=== PATIENT | female | born 1955 | race Caucasian/White ===

== ENCOUNTER 2016-11-16 14:55 | Inpatient (IN) | payer SELFPAY ==
--- NOTE | 2016-11-16 15:45 | ED.PDOC ---
History of Present Illness - General Chief Complaint: Abdominal Pain Stated Complaint: abdominal pain,n/v Time Seen by Provider: 11/16/16 15:45 Information Source: patient, Vital Signs reviewed Exam Limitations: no limitations - History of Present Illness Initial Comments: Maren Chacko 61 y/o female stated that she had been having sharp intermittent lower abdominal pains since yesterday had one episode of vomiting today ,no painful urination no diarrhea but with loose stools x 3 today.Just had soup today since no appetite. Abdominal Pain Onset Location: suprapubic Pain Radiation: no radiation Timing/Duration: 24 hours, intermittent Improving Factors: nothing Worsening Factors: nothing Associated Symptoms: nausea/vomiting - x 1 Review of Systems - Review of Systems Constitutional: States: no symptoms reported EENTM: States: no symptoms reported Respiratory: States: no symptoms reported Cardiology: States: no symptoms reported Gastrointestinal/Abdominal: States: see HPI Genitourinary: States: no symptoms reported Musculoskeletal: States: no symptoms reported Past Medical History (General) - Patient Medical History Hx Congestive Heart Failure: No Hx Diabetes: No Surgical History: other - removal of breast implant - Vaccination History Hx Influenza Vaccination: Yes Hx Pneumococcal Vaccination: No - Social History Hx Tobacco Use: No Family Medical History - Family History Mother Family History: Unknown Living Status: Unknown Hx Family Hypertension: Yes - several family members Hx Family Diabetes: Yes - mom Physical Exam - Physical Exam General Appearance: Alert, No apparent distress Eyes, Ears, Nose, Throat Exam: PERRL/EOMI, pharynx normal Neck: non-tender, supple Respiratory: chest non-tender, lungs clear Cardiovascular/Chest: normal peripheral pulses, regular rate, rhythm, no murmur Peripheral Pulses: No deficit Gastrointestinal/Abdominal: soft, rebound - lower abdomen, tenderness - suprapubic Back Exam: no vertebral tenderness Extremity: no pedal edema, no calf tenderness Lymphatic: no adenopathy Progress - Progress Progress: 11/16/16 18:43 Vital Signs - 8 hr 11/16/16 11/16/16 15:27 17:00 Temperature 97.9 F Pulse Rate [ 86 80 Left Brachial] Respiratory 20 16 Rate Blood Pressure 128/80 117/76 [Left Arm] O2 Sat by Pulse 95 94 L Oximetry Laboratory Tests 11/16/16 11/16/16 11/16/16 16:01 16:01 16:05 WBC 10.9 H RBC 4.46 Hgb 14.0 Hct 41.2 MCV 92.2 MCH 31.3 H MCHC 34.0 RDW 13.9 Plt Count 197 MPV 8.5 Absolute Neuts (auto) 8.50 H Absolute Lymphs (auto) 1.40 Absolute Monos (auto) 0.90 H Absolute Eos (auto) 0.00 Absolute Basos (auto) 0.00 Neutrophils % 77.8 Lymphocytes % 13.1 L Monocytes % 8.5 Eosinophils % 0.2 L Basophils % 0.4 Sodium 133 L Potassium 4.0 Chloride 100 L Carbon Dioxide 24 Anion Gap 13.0 BUN 12 Creatinine 0.65 BUN/Creatinine Ratio 18.5 Random Glucose 107 H Serum Osmolality 266.6 L Calcium 9.2 Total Bilirubin 0.7 AST 16 ALT 17 Alkaline Phosphatase 52 Serum Total Protein 6.9 Albumin 4.1 Globulin 2.8 Albumin/Globulin Ratio 1.5 Lipase 19 L Urine Color Yellow Urine Appearance Sl cloudy Urine pH 7.0 Ur Specific [place] 1.025 Urine Protein Negative Urine Glucose (UA) Negative Urine Ketones >=160 Urine Blood Moderate H Urine Nitrite Negative Urine Bilirubin Negative Urine Urobilinogen 0.2 Ur Leukocyte Esterase Large H Urine RBC 10-20 H Urine WBC 20-30 H Ur Epithelial Cells 3-5 Urine Bacteria 2+ H - EKG/XRAY/CT CT Ordered: Yes - abd/p-acute appendicitis with fat stranding Departure - Departure Clinical Impression: Abdominal pain Qualifiers: Abdominal location: lower abdomen, unspecified Qualified Code(s): R10.30 - Lower abdominal pain, unspecified Appendicitis, acute Qualifiers: Acute appendicitis type: other Qualified Code(s): K35.89 - Other acute appendicitis Time of Disposition: 18:44 Disposition: Admit Patient Condition: Good Home Medications: Ambulatory Orders NK [NK] 11/16/16 Decision To Admit - Decistion To Admit Decision to Admit Reason: Admit from ER Decision to Admit Date: 11/16/16 Decision to Admit Time: 19:00 - D/ W Dr. MCGARRY-surgeon
--- NOTE | 2016-11-16 18:28 | CT ---
EXAM DESCRIPTION: Abdoment/Pelvis w/o Contrast CLINICAL HISTORY: 61 years Female, pain COMPARISON: None. TECHNIQUE: Contiguous axial CT images of the abdomen and pelvis were acquired without administration of intravenous contrast. Coronal and sagittal reformatted images are provided. This exam was performed according to our departmental dose-optimization program which includes use of Automated Exposure Control, adjustment of the mA and/or kV according to patient size and/or use of iterative reconstruction technique. FINDINGS: Chest base: Unremarkable Liver: At least two hypoattenuating lesions are seen within the liver, the larger lesion being a simple hepatic cyst.. Gallbladder: Unremarkable. Spleen: Unremarkable. Adrenals: Unremarkable. Pancreas: Unremarkable. Right Kidney: No renal stones or hydronephrosis. Left Kidney: No renal stones or hydronephrosis. Aorta and branch vessels: Unremarkable. Lymph nodes: No lymphadenopathy. Bowels: Enlarged appendix measuring 11 mm with adjacent fat stranding and mildly thickened zayas. Scattered colonic diverticula. Pelvic organs: Unremarkable. Bladder: Unremarkable. Bones and soft tissues: No acute osseous or soft tissue abnormalities. IMPRESSION: Findings of uncomplicated acute appendicitis. Scattered colonic diverticula. Electronically signed by: Jose West MD 11/16/2016 6:27 PM CDT
[2016-11-16] MEDS ORDERED: SODIUM CHLORIDE 0.9% 1000ML 1,000 ML IVS ONE (18:37)
[2016-11-16] MEDS ORDERED: levoFLOXacin 500MG IV 500 MG in PREMIX BAG 1 BAG IVPB ONE (18:39)
[2016-11-16] MEDS ORDERED: levoFLOXacin 500MG IV 100 ML IVPB ONE (18:50)
--- NOTE | 2016-11-16 20:35 | HP ---
SUPERVISING PHYSICIAN: Jose Alcaraz MD CHIEF COMPLAINT: Abdominal pain. HISTORY OF PRESENT ILLNESS: This is a 61-year-old female who had been having sharp intermittent lower abdominal pain since yesterday. She had several episodes of vomiting. She has not had an appetite over the last few days. The abdominal pain progressively worsened, so she came to the Emergency Room today. In the Emergency Room, she had some suprapubic and umbilical abdominal pain and her CT of the abdomen and pelvis pain in the right showed findings of uncomplicated acute appendicitis and scattered colonic diverticula. Her laboratory studies showed a WBC of 10.9, hemoglobin 14, hematocrit 41.2. Sodium was slightly low at 133 with potassium 4, chloride 100, carbon dioxide 24 , BUN 12, creatinine 0.65, random glucose 107, serum osmolality 266.6, lipase 19. Urinalysis showed moderate urine blood, large urine leukocyte esterase, 10 to 20 urine RBCs, 20 to 30 urine WBCs, and 2+ urine bacteria. Dr. Conway was consulted by the Emergency Room physician and she was also given some Levaquin and Zofran in the Emergency Room. After speaking with Dr. Conway, we are going to admit the patient for acute appendicitis. PAST MEDICAL HISTORY: None. PAST SURGICAL HISTORY: 1. Removal of her breast implants. HOME MEDICATIONS: Negative. ALLERGIES: CODEINE. SOCIAL HISTORY: She is . She lives in [place]. She denies any smoking, ETOH, or illicit drug use. REVIEW OF SYSTEMS: GENERAL: Negative for fever, fatigue or weight changes. HEENT: Negative for sinus symptoms, ear pain, vision changes or sore throat. RESPIRATORY: Negative for wheezing, coughing or shortness of breath. CARDIAC: Negative for chest pain, palpitations or tachycardia. GASTROINTESTINAL: As per history of present illness. GENITOURINARY: Negative for hematuria, dysuria or polyuria. MUSCULOSKELETAL: Negative for arthralgias, myalgias or back pain. NEUROLOGIC: Negative for headache, dizziness or seizures. PHYSICAL EXAMINATION: VITAL SIGNS: Temperature 99.7. Heart rate 97. Blood pressure 119/69. Respiratory rate 20. O2 saturation 94% on room air. GENERAL: This is a 61-year-old female patient who is lying in her hospital bed. She is in no acute distress. HEENT: Normocephalic, atraumatic. Pupils are equal and reactive. Oropharynx is clear. NECK: Supple without mass. RESPIRATORY: Clear to auscultation bilaterally. CHEST: There is equal rise and fall of the chest with inspiration and expiration. CARDIOVASCULAR: Regular rate and rhythm. ABDOMEN: Soft, nondistended. She has no rebound tenderness, but is diffusely tender in the umbilical to the suprapubic area. Bowel sounds are positive. EXTREMITIES: No cyanosis, clubbing or edema. NEUROLOGIC: Awake, alert and oriented times three. LABORATORY: Labs and films are as per the history of present illness. ASSESSMENT: 1. Acute appendicitis with a mildly elevated white blood cell count. 2. Urinary tract infection. 3. Suprapubic abdominal pain. PLAN: We will admit the patient to the hospital. I have consulted Dr. Conway. She has received a dose of Levaquin and we will continue the Levaquin as well as Flagyl. We will also begin some IV fluids and NPO after midnight. I have given her some Dilaudid for pain and some Ativan for sleep tonight. I have also given her some Zofran. Protonix has been ordered for ulcer prophylaxis, SCDs for DVT prophylaxis. I have repeated some morning lab. Dr. Conway will see her in the morning. At that time, we will discuss surgical options if needed. Otherwise, we will continue to monitor the patient closely and follow as needed. Dr. Alcaraz is the collaborating physician and available for consultation. #[id number] [facility]
[2016-11-16] MEDS ORDERED: ONDANSETRON INJ 4 MG/2 ML VIAL IV ONE (20:38)
[2016-11-16] MEDS ORDERED: ONDANSETRON INJ 4 MG/2 ML VIAL ONE (20:38)
[2016-11-16] MEDS ORDERED: ONDANSETRON INJ 4 MG/2 ML VIAL IV PRN (21:24)
[2016-11-16] MEDS ORDERED: HYDROmorphone HCL INJ 2 MG/ML VIAL IV PRN (21:27)
[2016-11-16] MEDS ORDERED: IV SET AND CAP CHANGE INJ INJ SCH (21:30)
[2016-11-16] MEDS ORDERED: metroNIDAZOLE IV PREMIX 500MG 100 ML IVPB ONE (21:49)
[2016-11-16] MEDS: DEX 5% W/NACL 0.9% 1000ML 1,000 ML IVS PRN (21:57)
[2016-11-16] MEDS: PANTOPRAZOLE SODIUM IV 40 MG VIAL IV SCH (21:59)
[2016-11-16] MEDS: metroNIDAZOLE IV PREMIX 500MG 500 MG in PREMIX BAG 1 BAG IVPB SCH (22:03)
[2016-11-17] MEDS ORDERED: metroNIDAZOLE IV PREMIX 500MG 100 ML IVPB ONE ×3 (06:29→20:28)
[2016-11-17] MEDS: metroNIDAZOLE IV PREMIX 500MG 500 MG in PREMIX BAG 1 BAG IVPB SCH ×3 (06:30→22:09)
[2016-11-17] MEDS: DEX 5% W/NACL 0.9% 1000ML 1,000 ML IVS PRN ×2 (08:29→15:57)
--- NOTE | 2016-11-17 09:05 | RAD ---
Study: Single Frontal View of the Chest. Indication:preop/abdominal pain/tachycardia Comparison: October 07, 2011. IMPRESSION: Lung apices not included in their entirety within the field of view on the frontal image. Heart size normal. Lungs clear. No acute osseous abnormality. Electronically signed by: Carlton Dutta MD 11/17/2016 9:04 AM CDT
--- NOTE | 2016-11-17 09:55 | CONS ---
DATE OF CONSULTATION: 11/17/16 HISTORY OF PRESENT ILLNESS: The patient is a 61-year-old female who developed acute abdominal pain intermittently in the lower abdomen on Thursday. She has had evidence for episodes of vomiting prior to presenting to the Emergency Room and had no appetite. The abdominal pain worsened. She presented to the Emergency Room where she was found to have a mildly elevated white blood cell count of 10.[address] scan revealed acute, uncomplicated appendicitis and diverticulosis. She denied previous episodes of like illnesses. She denied change in her bowel habits, but does have a chronic problem with constipation, especially since she has been on a very low carb diet. She specifically denied blood per rectum, melanotic stools and no hematemesis. PAST MEDICAL HISTORY: Noncontributory. PAST SURGICAL HISTORY: 1. Breast implants and removal. CURRENT MEDICATIONS: She takes no medications. ALLERGIES: CODEINE. SOCIAL HISTORY: The patient is and lives here in [place]. She runs a restaurant. She denies significant smoking history. She drinks moderately to minimally and has no history of drug use. REVIEW OF SYSTEMS: Negative specifically for change in weight, fever, no upper respiratory symptoms, no shortness of breath or chest pain. There is no history of hematuria or dysuria. PHYSICAL EXAMINATION: VITAL SIGNS: The patient is currently afebrile, normotensive. Pulse rate in the 90s. Respiratory rate 18. HEENT: Sclerae nonicteric. Mucous membranes moist. NECK: Without adenopathy. CHEST: Equal breath sounds bilaterally. HEART: Regular rate and rhythm. ABDOMEN: Soft. There is mild tenderness in the right lower quadrant without mass, without guarding. Bowel sounds are positive. PELVIC/RECTAL: Deferred. EXTREMITIES: Without cyanosis, clubbing or edema. LABORATORY: This morning, white blood cell count 10.7, 79% neutrophils, hemoglobin 13.4 which is down from 14, platelet count 189,000. Potassium 3.8, creatinine 0.62. Liver functions are all within normal limits. C-reactive protein 10.5. Urine revealed specific gravity of 1.025 on admission, 10 to 20 red cells, 20 to 30 white cells, 2+ bacteria. Urine culture is pending. ASSESSMENT: 1. Acute appendicitis. 2. Diverticulosis. PLAN: She was started on IV Flagyl and Levaquin last night. Her white count is essentially the same considering however she did have a drop in her hemoglobin, so she is somewhat dehydrated, so her white count may have come down slightly from that. Her shift shows slightly higher segmented neutrophils , but not significantly. She has possibly a urinary tract infection. I have discussed at length with the patient either antibiotic therapy for the appendicitis versus appendectomy and laparoscopic appendectomy. The and are currently discussing it. Currently, we will continue the IV Flagyl and Levaquin. If she continues to improve later this morning, we will consider feeding her a clear liquid lunch and if she tolerates that and stays afebrile, etc., would consider discharge this evening on oral antibiotics for at least 7 days. [facility][id number] [facility]
--- NOTE | 2016-11-17 11:43 | PN ---
SUPERVISING PHYSICIAN: Eugene Darnell MD DATE: 11/17/16 SUBJECTIVE: The patient is sitting up in her bed. She says she feel some better and actually feels like she could eat, but due to the significant pain yesterday and after discussing her condition with Dr. Conway, she has decided to go ahead and have the appendectomy. She has no complaints of nausea, vomiting, diarrhea, or constipation. She does still have some mild suprapubic to umbilical tenderness. OBJECTIVE: VITAL SIGNS: T-max in 24 hours is 99.3. Pulse 92. Blood pressure 105/71. Respiratory rate 20. O2 saturation 93%. LUNGS: Clear to auscultation bilaterally. CARDIAC: Regular rate and rhythm. ABDOMEN: Soft, nondistended. It is diffusely tender to the suprapubic up to the umbilicus area. There is no rebound tenderness. It is slightly improved from last night. NEUROLOGIC: Awake, alert and oriented times three. LABORATORY: WBC slightly improved to 10.7 with hemoglobin 13.4, hematocrit 39.6 , neutrophils 79.9% with an ESR of 14. Electrolytes are basically within normal limits, but her glucose is slightly elevated at 136. Liver enzymes are within normal limits. C-reactive protein is 10.5. preliminary blood cultures are negative. Preliminary urine culture shows an insignificant colony count of mixed alberto. Chest x-ray per radiologic interpretation shows lung apices not included within their entirety within the field of view on the frontal view. Heart size is normal. Lungs are clear. No acute osseous abnormality. All other labs and films have been reviewed via the EMR. ASSESSMENT: 1. Acute appendicitis with a mildly elevated white blood cell count and elevated C-reactive protein of 10.2. 2. Urinary tract infection. 3. Suprapubic abdominal pain. PLAN: We will continue present supportive care. Dr. Conway will take her to surgery later this morning. We will followup with her in the postoperative phase. Surgical issues will be per Dr. Conway. We will followup with her as needed and treat as appropriate. Dr. Darnell is the collaborating physician and available for consultation. [facility][id number] [facility]
[2016-11-17] MEDS ORDERED: raNITIdine HCL INJ 25 MG/ML VIAL IV ONE (12:00)
[2016-11-17] MEDS ORDERED: PROPOFOL 200 MG/20 ML VIAL IV ONE (12:00)
[2016-11-17] MEDS ORDERED: METOCLOPRAMIDE HCL INJ 10 MG/2 ML VIAL IV ONE (12:00)
[2016-11-17] MEDS ORDERED: KETOROLAC TROMETHAMINE INJ 30 MG/ML VIAL IV ONE (12:00)
[2016-11-17] MEDS ORDERED: LIDOCAINE 1% 10 ML VIAL INJ ONE (12:00)
[2016-11-17] MEDS ORDERED: ePHEDrine SULF 50 MG/ML IV ONE (12:00)
[2016-11-17] MEDS ORDERED: DEXAMETHASONE INJ 10 MG/ML VIAL IV ONE (12:00)
[2016-11-17] MEDS ORDERED: BUPIVACAINE 0.25% W/EPI 50 ML VIAL INJ ONE (12:16)
[2016-11-17] MEDS ORDERED: MIDAZOLAM INJ 2 MG/2 ML VIAL IV ONE (12:30)
[2016-11-17] MEDS ORDERED: fentaNYL CITRATE INJ 50 MCG/ML AMP IV ONE (12:31)
[2016-11-17] MEDS ORDERED: ROCURONIUM BROMIDE 10 MG/ML VIAL IV ONE (12:31)
[2016-11-17] MEDS ORDERED: ELECTROLYTE-A 1,000 ML IVS ONE (12:40)
[2016-11-17] MEDS ORDERED: HYDROmorphone HCL INJ 2 MG/ML VIAL ONE (13:23)
[2016-11-17] MEDS ORDERED: SUGAMMADEX SODIUM 200 MG/2 ML VIAL IV ONE (13:35)
[2016-11-17] MEDS ORDERED: ONDANSETRON INJ 4 MG/2 ML VIAL IV PRN (13:42)
[2016-11-17] MEDS ORDERED: HYDROmorphone HCL INJ 2 MG/ML VIAL IV PRN (13:42)
--- NOTE | 2016-11-17 14:03 | OP ---
DATE OF PROCEDURE: 11/17/16 PREOPERATIVE DIAGNOSIS: 1. Abdominal pain. 2. Elevated white blood cell count. 3. Abnormal CT scan suspicious for appendicitis. POSTOPERATIVE DIAGNOSIS: 1. Abdominal pain. 2. Elevated white blood cell count. 3. Abnormal CT scan suspicious for appendicitis. 4. Acute suppurative appendicitis. PROCEDURE: 1. Laparoscopy with appendectomy. SURGEON: Art Conway MD. PROCESS IMPROVEMENT CONSULTANT: None. ANESTHESIA: General endotracheal anesthesia and local infiltration of 0.25% Marcaine with epinephrine. INDICATION: The patient is a 61-year-old female who developed abdominal pain on Thursday morning. It worsened on Thursday. She began vomiting and presented to the Emergency Room. When I was called, we did not have an Operating Room crew regional agronomist, so she was offered transfer, but she wished to stay. She was started on IV Levaquin and Flagyl last night. This morning, there was essentially no change in her white blood cell count which was only mildly elevated over 10. She still had pain in the right lower quadrant. I discussed at length antibiotic therapy versus appendectomy with her and her . I left them to discuss it and they called later and said they wished to proceed with surgery. She was brought to the Surgical Suite today just after noon for appendectomy. FINDINGS: She had acute suppurative appendicitis, a small amount of serous fluid in the pelvic cul-de-sac. No other pathology was identified. PROCEDURE: After adequate general endotracheal anesthesia was obtained, the patient was prepped and draped in the usual sterile manner. The infraumbilical area was infiltrated with local anesthesia. A curvilinear incision was fashioned and carried down through the subcutaneous tissue to the midline fascia. Traction sutures were placed on either side of the midline. A small incision was made in the midline fascia. The peritoneum was opened bluntly. Sherrie trocar was introduced under direct vision into the abdominal cavity and fixed in place with a 20 mL balloon. CO2 was then insufflated until a pressure of 12 mmHg was reached and the abdomen was tympanitic in all four quadrants. When this was done, the laparoscope was introduced and the abdomen was inspected with the previously noted findings. The patient was then placed in the Trendelenburg position. A 5-mm port was placed suprapubically under direct vision. The right lower quadrant was explored and the appendix was identified. The left lower quadrant port was placed under direct vision. The patient was then turned to the right side up and the appendix was identified, dissected free from the surrounding tissue. The base of the appendix was identified. The mesoappendix at the base was divided using using blunt dissection. The Endo -ELIF stapler with a vascular load was then fired once through the base of the appendix and twice through the mesoappendix. The appendix was brought out through the left lower quadrant port in an EndoCatch bag in the usual manner under direct vision. When this was done, the port was replaced. The right lower quadrant was inspected. There was good hemostasis noted. Two 4x4 sponges were introduced to clean up the serous fluid in the pelvis and to clean up a little bit of blood in the right lower quadrant. When these were both removed, good hemostasis was noted. At this point, the left lower quadrant port was removed under direct vision and the port site fascia was approximated with two simple sutures of 0 Vicryl placed using the EndoClose device. When these were tightened and tied, hemostasis was noted to be good. At this point, the suprapubic port was removed. Good hemostasis was noted. At this point, the CO2, the laparoscope and the infraumbilical port were removed. The infraumbilical port site fascia was approximated with a single [id number] suture of 0 Vicryl. Subcutaneous tissue was irrigated with saline. Skin edges were loosely approximated with a skin stapler. The patient tolerated the procedure well. The patient was awakened and taken to the Recovery Room in good and stable condition. Estimated blood loss was less than 25 mL. All sponge, needle and instrument counts were correct. #[id number] [facility]
[2016-11-17] MEDS ORDERED: levoFLOXacin 500MG IV 500 MG in PREMIX BAG 1 BAG IVPB SCH (20:00)
[2016-11-17] MEDS ORDERED: levoFLOXacin 500MG IV 100 ML IVPB ONE (20:27)
[2016-11-17] MEDS: SODIUM CHLORIDE 0.9% (FLUSH) 10 ML SYG IV PRN ×2 (20:55→22:08)
[2016-11-17] MEDS: PANTOPRAZOLE SODIUM IV 40 MG VIAL IV SCH (20:55)
[2016-11-18] MEDS: DEX 5% W/NACL 0.9% 1000ML 1,000 ML IVS PRN (02:08)
[2016-11-18] MEDS ORDERED: metroNIDAZOLE IV PREMIX 500MG 100 ML IVPB ONE (03:52)
[2016-11-18] MEDS: metroNIDAZOLE IV PREMIX 500MG 500 MG in PREMIX BAG 1 BAG IVPB SCH (06:02)
[2016-11-18] MEDS: SODIUM CHLORIDE 0.9% (FLUSH) 10 ML SYG IV PRN (06:02)
[2016-11-18] MEDS ORDERED: HYDROcodone 5MG/APAP 325MG 1 EA TAB PO PRN (09:43)
[2016-11-18] MEDS ORDERED: diphenhydrAMINE HCL 50 MG/ML VIAL IV ONE (11:14)
[2016-11-18] MEDS ORDERED: MAGNESIUM HYDROXIDE 30 ML UD PO ONE (13:02)
[2016-11-18 13:07] VITALS: O2SAT 96
--- NOTE | 2016-11-18 13:17 | DS ---
FINAL DIAGNOSIS: 1. Abdominal pain. 2. Acute appendicitis, suppurative. SURGICAL PROCEDURE: Laparoscopic appendectomy on 11/17/16. HISTORY OF PRESENT ILLNESS: The patient is a 61-year-old female who developed acute abdominal pain intermittently in the lower abdomen on Thursday. She has had evidence for episodes of vomiting prior to presenting to the Emergency Room and had no appetite. The abdominal pain worsened. She presented to the Emergency Room where she was found to have a mildly elevated white blood cell count of 10.[address] scan revealed acute, uncomplicated appendicitis and diverticulosis. She denied previous episodes of like illnesses. She denied change in her bowel habits, but does have a chronic problem with constipation, especially since she has been on a very low carb diet. She specifically denied blood per rectum, melanotic stools and no hematemesis. LABORATORY: The pathology report is pending at the time of discharge. Her white blood cell count at the tie of discharge is 10.2 with 79% neutrophils. Hemoglobin 12, platelet count 184,000. HOSPITAL COURSE: The patient was admitted from the Emergency Room to the Floor and started on IV Levaquin and Flagyl. She understood that we had no surgery crew on Thursday and we would attempt IV antibiotic therapy for what appeared to be uncomplicated appendicitis. By the next morning, the white count had essentially not changed and she still was quite tender in the right lower quadrant. After the risks, benefits and alternatives to surgical versus IV antibiotic therapy, she decided to proceed with laparoscopic appendectomy which happened the early afternoon of 11/17/16. She had some vomiting postoperatively , but by the next morning, she was tolerating clear liquids, advanced to a regular diet, began ambulating without any significant pain, and remained afebrile. Just past noon on 11/18/16, she is discharged home. CONDITION ON DISCHARGE: Improved and good. PROGNOSIS: Excellent, pending pathology report. DISCHARGE PLAN: She is discharged on a regular diet and told to push fluids. She was told she can ambulate, but do no lifting or exercise. She was told she can shower, but not tub bath. She will be appointed a followup appointment in 8 days. She was also instructed to call me sooner if she develops any other problems or has questions. #[id number] [facility]
[2016-11-18 14:40] VITALS: BP 104/67; TEMP 98.3
[2016-11-18] MEDS ORDERED: SODIUM CHLORIDE 0.9% (FLUSH) 10 ML SYG IV SCH (21:00)
== END 2016-11-18 14:40 | disposition home or self-care (01) | DRG 342 ==
LOC: ER 14:55 → MS 20:34
PROVIDERS: ADMIT Nurse Practitioner Acute Care; ATTEND Surgery
PROC: 0DTJ4ZZ Resection of Appendix, Percutaneous Endoscopic Approach (ICD-10-PCS; principal; 2016-11-17 12:35)
DX: K35.80 Unspecified acute appendicitis (principal); N39.0 Urinary tract infection, site not specified; K59.09 Other constipation; K57.30 Diverticulosis of large intestine without perforation or abscess without bleeding; Z88.5 Allergy status to narcotic agent

== ENCOUNTER → 2018-01-20 | Outpatient (CLI) | payer MEDICARE, OTHER | LOC: GMAE 10:53 | PROVIDERS: ATTEND Family Medicine | DX: Z79.899 Other long term (current) drug therapy (principal) ==

== ENCOUNTER → 2018-06-11 | Outpatient (CLI) | payer MEDICARE, OTHER ==
--- NOTE | 2018-06-14 16:48 | MAM ---
EXAM DESCRIPTION: 3D Screening BILATERAL : Digital Mammography. CLINICAL HISTORY: 63 years Female ANNUAL SCREENING . No complaints. No personal or family history of breast cancer. Childbirth. Postmenopausal. Taking HRT 5 or more years ago. Bilateral Implants removed 6 years ago. Lifetime risk of developing breast cancer (Tyrer-Cuzick model)(%): 4.6. COMPARISON: 2-D digital screening bilateral mammography 12/09/2011. No prior reports available. TECHNIQUE: Bilateral CC and MLO projection full-field images, digital tomosynthesis mammographic technique. Bilateral digital 2-D full-field MLO images. CAD not available for tomosynthesis or 2-D images. FINDINGS: The breast parenchymal density pattern is: Scattered areas of fibroglandular density. No skin thickening or nipple retraction. Bilateral silicone implants have been removed since the prior study. Bright dense material now visualized in the posterior third of the left breast is most likely residual implant material. There may be a small amount of bloody silicone implant material in the posterior right breast. No new focal, stellate mass or density, focal asymmetry , and no suspicious microcalcifications right breast. IMPRESSION: Most likely residual silicone implant material in the posterior right breast. ASSESSMENT: BI-RADS CATEGORY: 0 - INCOMPLETE- Need additional imaging evaluation. FOLLOW-UP: Recall for additional imaging: Targeted ultrasound posterior left breast in the region of interest.. Written communication concerning the IMPRESSION and Follow-up, will be mailed to the patient and referring health care provider. Electronically signed by: Alex Jordan MD 06/14/2018 4:46 PM CDT
== END ==
LOC: MAMMO 08:57
PROVIDERS: ATTEND Family Medicine
DX: Z12.31 Encounter for screening mammogram for malignant neoplasm of breast (principal)

== ENCOUNTER → 2018-06-24 | Outpatient (CLI) | payer MEDICARE, OTHER ==
--- NOTE | 2018-06-25 08:20 | US ---
EXAM DESCRIPTION: Breast,Left: Ultrasound CLINICAL HISTORY: 63 yearsFemaleABNORMAL MAMMOGRAM. Ruptured implant material posterior left breast. COMPARISON: Bilateral screening digital breast tomosynthesis 06/11/2018. TECHNIQUE: Transcutaneous scanning of the left breast utilizing reese-scale and Doppler modes. Scanning performed by the packing room worker and Dr. Jordan. FINDINGS: Ultrasound: Scanning of the posterior left breast just anterior to the pectoral muscle at the 12:00 position. Mostly fatty echotexture. Oval-shaped hypoechoic object with echogenic margins wider than tall orientation and posterior acoustic shadowing is visualized. Dimensions are 2.2 x 0.8 x 0.8 cm. This corresponds to residual implant material seen on prior mammograms. No dominant solid mass or distinct cyst. No parenchymal edema or large calcifications. Overlying skin changes. Normal vascularity. IMPRESSION: Benign exam. Residual implant material posterior left breast. BIRAD CATEGORY: 2 BENIGN FINDINGS. RECOMMENDATIONS: FOLLOW UP: Return to routine digital bilateral mammographic screening, one year interval from June 2018. Written communication explaining the IMPRESSION and follow-up, will be mailed to the patient and referring health care provider. The FINDINGS and the FOLLOW-UP plan were reviewed in person with the patient after the examination. According to the [employer], yearly mammograms are recommended starting at age 40 and continuing as long as a woman is in good health. Any breast change noted on a breast self-exam should be reported promptly to the patient's healthcare provider. Breast MRI is recommended for women with an approximately 20-25% or greater lifetime risk of breast cancer, including women with a strong family history of breast or ovarian cancer and women who have been treated for Hodgkin's disease. A negative mammographic report should not delay tissue diagnosis in patients with significant clinical history or physical findings. Extremely dense breast tissue limits the sensitivity of digital mammography. Electronically signed by: Alex Jordan MD 06/25/2018 8:17 AM CDT
== END ==
LOC: US 10:30
PROVIDERS: ATTEND Family Medicine
DX: R92.2 Inconclusive mammogram (principal)

== ENCOUNTER → 2019-01-25 | Outpatient (CLI) | payer MEDICARE, OTHER | LOC: GMAE 11:51 | PROVIDERS: ATTEND Family Medicine | DX: Z79.899 Other long term (current) drug therapy (principal) ==

== ENCOUNTER 2019-11-01 20:39 | Emergency (ER) | payer MEDICARE, OTHER ==
--- NOTE | 2019-11-01 21:40 | CT ---
CT head without contrast on 11/01/2019 CLINICAL INDICATION: Confusion TECHNIQUE: Multiple axial images are obtained throughout the head without the administration of contrast. This exam was performed according to our departmental dose-optimization program, which includes automated exposure control, adjustment of the mA and/or kV according to patient size and/or use of iterative reconstruction technique. Total DLP is 859.97 mGy*cm. COMPARISON: None FINDINGS: There is no hydrocephalus. There is no CT evidence of acute infarct. There is no hemorrhage. There are no abnormal extra-axial fluid collections. There is no mass, mass effect or midline shift. No bony abnormality is noted. IMPRESSION: No acute intracranial abnormality. Electronically signed by: Chris Guerra 11/01/2019 9:39 PM CDT
--- NOTE | 2019-11-01 21:42 | RAD ---
XR CHEST 1 VIEW HISTORY: Mild confusion. COMPARISON: 11/17/2016 FINDINGS: The heart size is within normal limits. There is no pulmonary vascular congestion. No consolidation, pleural effusion, or pneumothorax is seen. No acute bony findings are seen. IMPRESSION: No evidence of acute cardiopulmonary disease. Electronically signed by: Abraham Mtz MD 11/01/2019 9:41 PM CDT
[2019-11-01 23:11] VITALS: O2SAT 97
--- NOTE | 2019-11-02 00:01 | ED.PDOC ---
History of Present Illness - General Chief Complaint: General Stated Complaint: heavy eye, unsteady gait, speech slurred Time Seen by Provider: 11/01/19 20:48 Source: patient Exam Limitations: no limitations - History of Present Illness Initial Comments: The patient is a 64-year-old female presented to emergency room secondary to 10-minute episode where she felt significantly drowsy, mildly dizzy and very slightly confused. She reports that she may have been slurring her speech a little bit as well. No difficulty finding words. No chest pain or palpitations. The primary symptom however was drowsiness. She does not believe that she accidentally took 1 of her Ambien when she took her medications from her medication kit planner. She denies any use of any antihistamines or anxiety medications or pain medications tonight. Upon arrival here she is alert and oriented. Vital signs are within normal limits. No focal neurological deficits. No history of any stroke. She is in normal sinus rhythm on telemetry. No fever or sore throat. No shortness of breath. No nausea vomiting. She reports that she has had significant vaginal bleeding for the last few months secondary to an increased estrogen dosage that she had been prescribed. No shortness of breath. Timing/Duration: other - 10 minutes Severity: mild Improving Factors: nothing Worsening Factors: nothing Associated Symptoms: malaise Allergies/Adverse Reactions: Allergies Codeine Allergy (Verified 11/01/19 21:01) Home Medications: Ambulatory Orders levoFLOXacin 500MG IV [Levaquin 500MG IV] 500 mg PO Q24H 3 Days #3 bag 11/18/16 Review of Systems - Review of Systems Constitutional: States: malaise EENTM: States: no symptoms reported Respiratory: States: no symptoms reported Cardiology: States: no symptoms reported Gastrointestinal/Abdominal: States: no symptoms reported Genitourinary: States: no symptoms reported Musculoskeletal: States: no symptoms reported Skin: States: no symptoms reported Neurological: States: see HPI Endocrine: States: no symptoms reported All other Systems: No Change from Baseline Past Medical History (General) - Patient Medical History Hx Seizures: No Hx Stroke: No Hx Dementia: No Hx Asthma: No Hx of COPD: No Hx Cardiac Disorders: No Hx Congestive Heart Failure: No Hx Pacemaker: No Hx Hypertension: No Hx Thyroid Disease: No Hx Diabetes: No Hx Gastroesophageal Reflux: No Hx Renal Disease: No Hx Cancer: No Hx of HIV: No Hx Hepatitis C: No Hx MRSA: No Surgical History: appendectomy - Vaccination History Hx Tetanus, Diphtheria Vaccination: No Hx Influenza Vaccination: No Hx Pneumococcal Vaccination: Yes - Social History Hx Tobacco Use: No Hx Alcohol Use: Yes - occasional wine Hx Substance Use: No Hx Physical Abuse: No Hx Emotional Abuse: No Family Medical History - Family History Mother Family History: Unknown Hx Family Hypertension: Yes - several family members Hx Family Diabetes: Yes - mom Father Living Status: Cause of : cancer Hx Family Cancer: Yes - Dad passed 7 yrs ago Physical Exam - Physical Exam General Appearance: Alert, Comfortable, No apparent distress Eye Exam: bilateral normal Ears, Nose, Throat: hearing grossly normal, normal pharynx Neck: full range of motion, supple Respiratory: lungs clear, normal breath sounds, no respiratory distress, no accessory muscle use Cardiovascular/Chest: normal peripheral pulses, regular rate, rhythm, no edema Peripheral Pulses: radial,right: 2+, radial,left: 2+ Gastrointestinal/Abdominal: non tender, soft Rectal Exam: deferred Back Exam: no CVA tenderness, no vertebral tenderness Extremity: normal range of motion, non-tender, normal inspection, no pedal edema, normal capillary refill Neurologic: pile fabric knitter II-XII nml as tested, alert, normal mood/affect, oriented x 3 Skin Exam: normal color Comments: Vital Signs - 24 hr 11/01/19 11/01/19 11/01/19 20:44 21:50 22:23 Temperature 97.3 F L Pulse Rate [ 79 76 75 monitor] Respiratory 16 16 16 Rate Blood Pressure 99/80 129/72 123/84 [Left Arm] O2 Sat by Pulse 99 98 98 Oximetry 11/01/19 23:00 Temperature Pulse Rate [ 68 monitor] Respiratory 16 Rate Blood Pressure 121/74 [Left Arm] O2 Sat by Pulse 97 Oximetry Progress - Progress Progress: 11/02/19 00:03 The patient is a 64-year-old female presented emergency room secondary to a brief episode of drowsiness and dizziness and mildly slurred speech. Source of this is still not entirely certain. Telemetry monitoring has been reassuring. Tilt vital signs are negative. Head CT shows no acute pathology. She has tested negative for coronavirus. She is not significantly anemic. It is possible this may have been a brief mild episode of vertigo. I am not going to make any medication changes on the patient at this time. I do want her to follow back up with her primary care doctor before the weekend for repeat evaluation. If the episode happens again, she does need to be reevaluated as immediately as possible, preferably while she is having the symptoms, in order to help delineate the source. ER warnings are given for any significant worsening. radha calvin [id number] - Results/Orders Results/Orders: Chest x-ray shows no acute abnormality. EKG shows normal sinus rhythm at 73 bpm. Mild right axis deviation. Normal R wave progression. No ST segment or T wave changes indicative of acute ischemia. Normal QT interval. Laboratory Tests 11/01/19 11/01/19 11/01/19 21:11 21:11 21:11 WBC 7.2 RBC 4.12 L Hgb 13.6 Hct 38.8 MCV 94.3 MCH 33.0 H MCHC 35.0 RDW 13.4 Plt Count 237 MPV 7.9 Absolute Neuts (auto) 4.20 Absolute Lymphs (auto) 2.10 Absolute Monos (auto) 0.70 Absolute Eos (auto) 0.10 Absolute Basos (auto) 0.00 Neutrophils % 58.2 Lymphocytes % 29.6 Monocytes % 10.0 H Eosinophils % 1.6 Basophils % 0.6 PT INR PTT (SP) Sodium 135 Potassium 3.7 Chloride 99 L Carbon Dioxide 27 Anion Gap 12.7 BUN 15 Creatinine 0.93 BUN/Creatinine Ratio 16.1 Random Glucose 103 Serum Osmolality 271.2 L Lactic Acid 0.9 Calcium 9.2 Magnesium 1.6 L Total Bilirubin 0.6 AST 22 ALT 19 Alkaline Phosphatase 50 Creatine Kinase 158 H CK-MB (CK-2) 3.6 CK-MB (CK-2) % 2.28 Troponin I < 0.02 B-Natriuretic Peptide 15.4 Serum Total Protein 6.5 Albumin 4.1 Globulin 2.4 Albumin/Globulin Ratio 1.7 TSH Urine Color Urine Appearance Urine pH Ur Specific [place] Urine Protein Urine Glucose (UA) Urine Ketones Urine Blood Urine Nitrite Urine Bilirubin Urine Urobilinogen Ur Leukocyte Esterase Urine RBC Urine WBC Ur Epithelial Cells Urine Bacteria 11/01/19 11/01/19 11/01/19 21:11 21:11 22:28 WBC RBC Hgb Hct MCV MCH MCHC RDW Plt Count MPV Absolute Neuts (auto) Absolute Lymphs (auto) Absolute Monos (auto) Absolute Eos (auto) Absolute Basos (auto) Neutrophils % Lymphocytes % Monocytes % Eosinophils % Basophils % PT 9.9 INR 1.00 PTT (SP) 26.5 Sodium Potassium Chloride Carbon Dioxide Anion Gap BUN Creatinine BUN/Creatinine Ratio Random Glucose Serum Osmolality Lactic Acid Calcium Magnesium Total Bilirubin AST ALT Alkaline Phosphatase Creatine Kinase CK-MB (CK-2) CK-MB (CK-2) % Troponin I B-Natriuretic Peptide Serum Total Protein Albumin Globulin Albumin/Globulin Ratio TSH 3.87 Urine Color Other Urine Appearance Sl cloudy Urine pH 8.5 H Ur Specific [place] 1.015 Urine Protein Negative Urine Glucose (UA) Negative Urine Ketones Trace Urine Blood Large H Urine Nitrite Negative Urine Bilirubin Negative Urine Urobilinogen 0.2 Ur Leukocyte Esterase Negative Urine RBC >50 H Urine WBC 0 Ur Epithelial Cells 5-10 Urine Bacteria 0 Departure - Departure Clinical Impression: Dysequilibrium, Somnolence Disposition: Discharge to Home or Self Care Condition: Fair Departure Forms: ED Discharge - Pt. Copy, Patient Portal Self Enrollment Diet: regular diet Activity: increase activity as tolerated Referrals: CHIQUIS MACIAS MD [Primary Care Provider] - 1-2 Weeks Home Medications: Ambulatory Orders levoFLOXacin 500MG IV [Levaquin 500MG IV] 500 mg PO Q24H 3 Days #3 bag 11/18/16 Additional Instructions: The patient is a 64-year-old female presented emergency room secondary to a brief episode of drowsiness and dizziness and mildly slurred speech. Source of this is still not entirely certain. Telemetry monitoring has been reassuring. Tilt vital signs are negative. Head CT shows no acute pathology. She has tested negative for coronavirus. She is not significantly anemic. It is possible this may have been a brief mild episode of vertigo. I am not going to make any medication changes on the patient at this time. I do want her to follow back up with her primary care doctor before the weekend for repeat evaluation. If the episode happens again, she does need to be reevaluated as immediately as possible, preferably while she is having the symptoms, in order to help delineate the source. ER warnings are given for any significant worsening.
[2019-11-02 00:16] VITALS: BP 120/70; TEMP 97.7
== END 2019-11-02 00:26 | disposition home or self-care (01) ==
LOC: ER 20:39
DX: R40.0 Somnolence (principal); R42 Dizziness and giddiness; R47.81 Slurred speech; Z88.5 Allergy status to narcotic agent; Z79.899 Other long term (current) drug therapy; Z20.828 Contact with and (suspected) exposure to other viral communicable diseases

== ENCOUNTER → 2019-12-13 | Outpatient (CLI) | payer MEDICARE, OTHER ==
--- NOTE | 2019-12-14 12:32 | US ---
EXAM DESCRIPTION: Pelvis TransvaginalUltrasound. CLINICAL HISTORY: 64 years Female POSTMENOPAUSAL BLEEDING COMPARISON: Bilateral screening digital breast tomosynthesis examination today. TECHNIQUE: Endovaginal scanning; Castellano-scale and Doppler modes. FINDINGS: Uterus 7.8 x 5.9 x 4.2 cm 100.9 mL. Uterus not retroflexed.. Endometrial thickness 6.2 mm. Myometrium heterogeneous. Posterior minimally hyperechoic mass measures 3.5 x 2.7 x 2.0 cm. Isoechoic mass measures 3.1 x 2.5 x 2.3 cm. Hyperechoic mass measures 3.2 x 2.9 x 2.8 cm. Cervix unremarkable.. Cul-de-sac no fluid. Bilateral ovary not seen.. No adnexal mass or free fluid. IMPRESSION: Multiple fibroids in the uterus. Abnormal thickening of the endometrium in a postmenopausal patient. Surgical consultation recommended. Ovaries not seen. No fluid in the cul-de-sac or adnexa. Electronically signed by: Alex Jordan MD 12/14/2019 12:30 PM [facility]
== END ==
LOC: US 09:00
PROVIDERS: ATTEND Nurse Practitioner Acute Care
DX: D25.9 Leiomyoma of uterus, unspecified (principal); N85.8 Other specified noninflammatory disorders of uterus; N95.0 Postmenopausal bleeding

== ENCOUNTER → 2019-12-14 | Outpatient (CLI) | payer MEDICARE, OTHER ==
--- NOTE | 2019-12-19 15:15 | MAM ---
EXAM DESCRIPTION: 3D Screening BILATERAL : Digital Mammography. CLINICAL HISTORY: 64 years Female ANNUAL SCREENING . No complaints and no family history of breast cancer. Menarche age 10. Childbirth age 16. Premenopausal. Currently on HRT.. Lifetime risk of developing breast cancer (Tyrer-Cuzick model)(%): 4.4. COMPARISON: Bilateral screening digital breast tomosynthesis June 2018.. No prior reports available. TECHNIQUE: Bilateral CC and MLO projection full-field images, digital tomosynthesis mammographic technique. Bilateral digital 2-D full-field MLO images. CAD available for 2-D images. FINDINGS: The breast parenchymal density pattern is: Scattered areas of fibroglandular density. No skin thickening or nipple retraction. Left breast posterior focal asymmetry stable. Posterior inferior mid sagittal "eggshell" calcification at 5:30. Scarring posterior mid sagittal superior right breast with no interval change. Solitary microcalcifications. Stable large patient calcification mid left breast. No new focal, stellate mass or density, focal asymmetry , and no suspicious microcalcifications bilaterally. Stable mammograms compared to prior study. IMPRESSION: Benign exam. BIRAD CATEGORY: 2 BENIGN FINDINGS. RECOMMENDATIONS: FOLLOW UP: Routine digital bilateral mammographic screening, one year interval from December 2019. Written communication explaining the IMPRESSION and follow-up, will be mailed to the patient and referring health care provider. According to the [employer], yearly mammograms are recommended starting at age 40 and continuing as long as a woman is in good health. Any breast change noted on a breast self-exam should be reported promptly to the patient's healthcare provider. Breast MRI is recommended for women with an approximately 20-25% or greater lifetime risk of breast cancer, including women with a strong family history of breast or ovarian cancer and women who have been treated for Hodgkin's disease. A negative mammographic report should not delay tissue diagnosis in patients with significant clinical history or physical findings. Extremely dense breast tissue limits the sensitivity of digital mammography. Electronically signed by: Alex Jordan MD 12/19/2019 3:13 PM [employer] MACH[employer]PA[employer]
== END ==
LOC: MAMMO 08:30
PROVIDERS: ATTEND Family Medicine
DX: Z12.31 Encounter for screening mammogram for malignant neoplasm of breast (principal)